=== PATIENT | female | born 1950 | race Caucasian/White ===

== ENCOUNTER 2021-11-17 14:36 | Observation (INO) ==
[2021-11-17] MEDS ORDERED: 0.9 % Sodium Chloride 1,000 ML IVC ONE ×2 (15:05→16:44)
[2021-11-17 15:32] LABS: Basophils # 0.1 K/mcL (0.0-0.2); Basophils % 0.5 %; Eosinophils # 0.9 K/mcL (0.0-0.6); Eosinophils % 7.8 %; Hematocrit 41.2 % (35.3-44.9); Hemoglobin 13.8 g/dL (11.5-15.4); Immature Granulocytes % 0.4 % (0-4); Lymphocytes # 2.4 K/mcL (0.6-4.6); Lymphocytes % 21.4 %; Mean Corpuscular HGB Conc 33.5 g/dL (31.6-35.5); Mean Corpuscular Hemoglobin 28.8 pg (28.0-33.3); Monocytes # 0.8 K/mcL (0.0-1.3); Monocytes % 6.9 %; Neutrophils # 7.1 K/mcL (1.6-8.9); Platelet Count 295 K/mcL (140-400); Red Blood Count 4.79 M/mcL (3.82-4.97); Red Cell Distribution Width 15.5 % (11.5-14.5); White Blood Count 11.2 K/mcL (4.3-11.1)
[2021-11-17 15:35] LABS: Bilirubin,Urine Large (Negative); Blood,Urine Trace-intact (Negative); Clarity,Urine Clear (Clear); Color,Urine Yellow (Yellow); Glucose,Urine (UA) Normal (Normal); Ketones,Urine Negative (Negative); Leukocyte Esterase,Urine Trace (Negative); Nitrite,Urine Positive (Negative); Protein,Urine Trace mg/dL (Neg-Trace); Specific Gravity,Urine 1.015 (1.010-1.025)
[2021-11-17 15:36] LABS: Squamous Epithelial Cell,Urine Few per hpf (None-Few)
[2021-11-17 15:37] LABS: Bacteria,Urine Moderate per hpf (None-Few)
[2021-11-17 15:53] LABS: Albumin 3.9 g/dL (3.5-5.7); Albumin/Globulin Ratio 1.2 (1.1-2.2); Bilirubin,Direct 6.7 mg/dL (0.0-0.2); Bilirubin,Indirect 3.1 mg/dL (0.0-1.0); Bilirubin,Total 9.8 mg/dL (0.3-1.0); Globulin 3.3 g/dL (2.4-3.5); Potassium 2.9 mEq/L (3.5-5.1); Total Protein 7.2 g/dL (6.4-8.9)
[2021-11-17] MEDS ORDERED: Iopamidol - 370 500 ML MLS IVP ONE (16:01)
[2021-11-17] MEDS ORDERED: cefTRIAXone 1,000 MG in 0.9 % Sodium Chloride Mini Bag 100 ML IVPB ONE (16:45)
[2021-11-17 19:59] LABS: Hepatitis B Surface Antigen Nonreactive (Nonreactive)
[2021-11-17 20:29] LABS: Hepatitis B Core IgM Nonreactive (Nonreactive); Hepatitis C Virus Antibody Nonreactive (Nonreactive)
[2021-11-17 20:30] LABS: Hepatitis A Antibody IgM Nonreactive (Nonreactive)
[2021-11-17] MEDS ORDERED: Ondansetron 4 MG/2 ML VIAL IVP PRN (21:11)
[2021-11-18] MEDS ORDERED: Ondansetron ODT 4 MG TAB.RAPDIS SL PRN (02:08)
[2021-11-18] MEDS ORDERED: Naloxone 0.4 MG/ML INJ IVP PRN (02:08)
[2021-11-18] MEDS ORDERED: Ondansetron 4 MG/2 ML VIAL IVP PRN ×2 (02:08)
[2021-11-18 07:40] LABS: Hematocrit 37.5 % (35.3-44.9); Hemoglobin 12.6 g/dL (11.5-15.4); Mean Corpuscular HGB Conc 33.6 g/dL (31.6-35.5); Mean Corpuscular Hemoglobin 29.1 pg (28.0-33.3); Mean Corpuscular Volume 86.6 fL (83.0-100.0); Mean Platelet Volume 9.1 fL (9.4-12.4); Platelet Count 257 K/mcL (140-400); Red Blood Count 4.33 M/mcL (3.82-4.97); Red Cell Distribution Width 15.9 % (11.5-14.5); White Blood Count 10.6 K/mcL (4.3-11.1)
[2021-11-18 08:18] LABS: Albumin 3.3 g/dL (3.5-5.7); Albumin/Globulin Ratio 1.3 (1.1-2.2); Bilirubin,Total 8.9 mg/dL (0.3-1.0); Calcium 9.1 mg/dL (8.6-10.3); Globulin 2.6 g/dL (2.4-3.5); Potassium 4.4 mEq/L (3.5-5.1); Total Protein 5.9 g/dL (6.4-8.9)
[2021-11-18] MEDS: hydroCHLOROthiazide 25 MG TABLET PO SCH (08:43)
[2021-11-18] MEDS: cefTRIAXone 2,000 MG in 0.9 % Sodium Chloride Mini Bag 100 ML IVPB SCH (08:44)
[2021-11-18] MEDS: MOM Conc 10 ML UD.LIQ PO PRN (22:25)
[2021-11-19] MEDS: hydroCHLOROthiazide 25 MG TABLET PO SCH (08:42)
[2021-11-19] MEDS: cefTRIAXone 2,000 MG in 0.9 % Sodium Chloride Mini Bag 100 ML IVPB SCH (08:43)
[2021-11-19] MEDS: MOM Conc 10 ML UD.LIQ PO PRN (11:50)
[2021-11-19 13:04] LABS: Albumin 3.6 g/dL (3.5-5.7); Albumin/Globulin Ratio 1.2 (1.1-2.2); Bilirubin,Total 8.9 mg/dL (0.3-1.0); Calcium 9.9 mg/dL (8.6-10.3); Globulin 3.1 g/dL (2.4-3.5); Potassium 3.4 mEq/L (3.5-5.1); Total Protein 6.7 g/dL (6.4-8.9)
[2021-11-19 19:29] VITALS: RESP 16
[2021-11-19 23:31] VITALS: BP 114/73; PULSE 84; TEMP 99; O2SAT 92
== END 2021-11-20 01:53 | disposition short-term general hospital (02) ==
LOC: EMEROOGRE 14:36 → INPGRE 14:36
PROVIDERS: ADMIT Family Medicine; ATTEND Family Medicine